=== PATIENT | male | born 1990 | race Caucasian/White ===

== ENCOUNTER 2016-04-02 16:50 | Emergency (ER) | payer OTHER ==
[2016-04-02] MEDS ORDERED: HYDROmorphone 1 MG/ML SYRINGE IVP STA ×2 (17:59→19:42)
[2016-04-02] MEDS ORDERED: HYDROmorphone 1 MG/ML SYRINGE ONE ×2 (18:01→19:45)
[2016-04-02] MEDS ORDERED: SODIUM CHLORIDE 0.9% 1,000 ML IV ONE (18:03)
[2016-04-02] MEDS ORDERED: LIDOCAINE VISCOUS 2% 15 ML UDC MM STA (19:41)
[2016-04-02] MEDS ORDERED: MAG HYDROX/AL HYDROX/SIMETH 30 ML UDC PO STA (19:41)
[2016-04-02] MEDS ORDERED: LIDOCAINE VISCOUS 2% 15 ML UDC MM ONE (19:45)
[2016-04-02] MEDS ORDERED: MAG HYDROX/AL HYDROX/SIMETH 30 ML UDC ONE (19:45)
[2016-04-02] MEDS ORDERED: IOPAMIDOL-300 100 ML VIAL IVP ONE (20:08)
[2016-04-02] MEDS ORDERED: HYDROcod/ACETAM 5/325 MG TABLET PO STA (20:54)
[2016-04-02] MEDS ORDERED: HYDROcod/ACETAM 5/325 MG TABLET ONE (21:03)
== END 2016-04-02 21:17 | disposition home or self-care (01) ==
DX: K25.3 Acute gastric ulcer without hemorrhage or perforation (principal)
CPT/HCPCS: 36415; 74177; 76705; 80053; 83690; 85025; 96374; 96376; 99283; 99284; A9270; J1170; Q9967

== ENCOUNTER 2017-05-09 16:00 | Outpatient (CLI) | payer OTHER | END 2017-05-09 16:01 | disposition critical access hospital (66) | LOC: EMS 16:00 | PROVIDERS: ATTEND Surgery | DX: M54.2 Cervicalgia (principal); M54.6 Pain in thoracic spine; V53.5XXA Driver of pick-up truck or van injured in collision with car, pick-up truck or van in traffic accident, initial encounter; Y92.414 Local residential or business street as the place of occurrence of the external cause | CPT/HCPCS: A0425; A0429 ==

== ENCOUNTER 2017-05-09 16:24 | Emergency (ER) | payer OTHER ==
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
[2017-05-09] MEDS ORDERED: HYDROcod/ACETAM 5/325 MG TABLET PO STA (16:38)
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
[2017-05-09 17:56] VITALS: BP 115/63
== END 2017-05-09 17:55 | disposition home or self-care (01) ==
LOC: EDUNIT# → ED 16:24
DX: S23.3XXA Sprain of ligaments of thoracic spine, initial encounter (principal); S89.91XA Unspecified injury of right lower leg, initial encounter; S13.9XXA Sprain of joints and ligaments of unspecified parts of neck, initial encounter; S80.02XA Contusion of left knee, initial encounter; V53.5XXA Driver of pick-up truck or van injured in collision with car, pick-up truck or van in traffic accident, initial encounter
CPT/HCPCS: 72040; 73564; 99283; A9270